=== PATIENT | male | born 1965 | race Hispanic/Latino ===

== ENCOUNTER 2023-06-10 07:24 | Day surgery (SDC) | payer OTHER ==
[~2023-06-10] VITALS: Ht 162.6 cm; Wt 80.7 kg
[2023-06-10] VITALS (16 sets, daily range): BP systolic 140–157; BP diastolic 79–93; PULSE 52–65; RESP 10–18
[2023-06-10] MEDS ORDERED: LEVE10006 PO (08:27)
[2023-06-10] MEDS ORDERED: PHEN64.8 PO (08:27)
[2023-06-10] MEDS ORDERED: CARB200T6 PO (08:27)
[2023-06-10] MEDS ORDERED: IOHEXOL-350 50ML VIAL IV ONE (08:27)
[2023-06-10] MEDS: 0.9%NACL 1000ML 1,000 ML IV ONE (08:52)
[2023-06-10] MEDS ORDERED: PROPOFOL 10 MG/ML 20ML VIAL IV ONE ×2 (14:35→14:51)
[2023-06-10] MEDS ORDERED: NEOSTIGMINE METHYLSULFATE 1MG/ML IV ONE (14:35)
[2023-06-10] MEDS ORDERED: ROCURONIUM BROMIDE 10MG/1ML 5ML VL ONE (14:36)
[2023-06-10] MEDS ORDERED: GLYCOPYRROLATE 0.2 MG/ML 5 ML VIAL ONE (14:36)
[2023-06-10] MEDS ORDERED: SUCCINYLCHOLINE CHLORIDE 20 MG/ML 10 ML VIAL ONE (14:36)
[2023-06-10] MEDS ORDERED: FENTANYL CITRATE PF 50 MCG/1 ML 2ML VIAL ONE (14:37)
[2023-06-10] MEDS ORDERED: LIDOCAINE PF 100MG/5ML (2%) SYRINGE 5ML ONE (14:37)
[2023-06-10] MEDS: INDOMETHACIN 100 MG SUPP.RECT RC ONE (15:00)
[2023-06-10] MEDS ORDERED: GLUCAGON 1MG KIT 1 MG ML ONE (15:09)
== END 2023-06-10 17:32 | disposition home or self-care (01) ==
LOC: DAH 07:24 → ENDO 07:24
PROVIDERS: ATTEND Internal Medicine Gastroenterology
DX: R93.2 Abnormal findings on diagnostic imaging of liver and biliary tract (principal); K80.51 Calculus of bile duct without cholangitis or cholecystitis with obstruction; K76.0 Fatty (change of) liver, not elsewhere classified; R56.9 Unspecified convulsions; K57.30 Diverticulosis of large intestine without perforation or abscess without bleeding; M19.90 Unspecified osteoarthritis, unspecified site; E78.5 Hyperlipidemia, unspecified; Z79.01 Long term (current) use of anticoagulants; Z79.899 Other long term (current) drug therapy; Z90.49 Acquired absence of other specified parts of digestive tract; Z98.890 Other specified postprocedural states; Z80.0 Family history of malignant neoplasm of digestive organs; Z86.010 Personal history of colon polyps
CPT/HCPCS: 43274; 43261; 88305 ×2; 74328; 43264; 43273; J3010; J0330; J7030 ×2; J1610; J3490 ×2; J2001; J2704 ×2; J2710; Q9967; A4649; C1876; A4215; C1769; 74330